=== PATIENT | male | born 1955 | race African-American/Black ===

== ENCOUNTER 2022-02-13 10:22 | Inpatient (IN) | payer OTHER ==
[2022-02-13] MEDS ORDERED: chlordiazePOXIDE HCL 25 MG CAPSULE PO PRN (11:14)
[2022-02-13] MEDS ORDERED: LOPERAMIDE HCL 2 MG CAPSULE PO PRN (11:15)
[2022-02-13] MEDS ORDERED: ACETAMINOPHEN 325 MG TABLET (FP) PO PRN ×2 (11:15)
[2022-02-13] MEDS ORDERED: METHOCARBAMOL 500 MG TABLET PO PRN (11:15)
[2022-02-13] MEDS ORDERED: MAGNESIUM HYDROX 2400MG/30ML ORAL SUSPENSION 30 ML CUP PO PRN (11:15)
[2022-02-13] MEDS ORDERED: MENTHOL/PHENOL 1 EACH UD MM PRN (11:15)
[2022-02-13] MEDS ORDERED: BISMUTH SUBSALICYLATE 524 MG/30 ML PO PRN (11:15)
[2022-02-13] MEDS ORDERED: NICOTINE 10 MG CARTRIDGE (INHALER) IH PRN (11:15)
[2022-02-13] MEDS ORDERED: IBUPROFEN 400 MG TABLET (FP) PO PRN (11:15)
[2022-02-13] MEDS ORDERED: ONDANSETRON *ODT* 4 MG TABLET SL PRN (11:15)
[2022-02-13] MEDS ORDERED: MAG HYDROX/AL HYDROX/SIMETH 30 ML UNIT-DOSE CUP PO PRN (11:15)
[2022-02-13] MEDS ORDERED: MAGNESIUM CITRATE 300 ML BOTTLE PO PRN (11:15)
[2022-02-13 11:38] VITALS: BMI 28.5
[2022-02-13] MEDS: hydrOXYzine PAMOATE 25 MG CAPSULE (FP) PO SCH ×3 (13:35→22:33)
[2022-02-13] MEDS: chlordiazePOXIDE HCL 25 MG CAPSULE PO SCH ×2 (17:50→22:33)
[2022-02-13] MEDS: MELATONIN 5 MG TABLETS PO SCH (22:34)
[2022-02-13] MEDS: THIAMINE HCL 100 MG TABLET (FP) PO SCH (22:35)
[2022-02-14] MEDS: chlordiazePOXIDE HCL 25 MG CAPSULE PO SCH ×4 (05:22→22:35)
[2022-02-14] MEDS: hydrOXYzine PAMOATE 25 MG CAPSULE (FP) PO SCH ×5 (05:22→22:35)
[2022-02-14] MEDS: PRENATAL VITAMINS W/ FOLIC ACID TABLET (FP) PO SCH (10:22)
[2022-02-14] MEDS ORDERED: guaiFENesin 200 MG/10 ML 10 ML UNIT-DOSE CUPS PO PRN (10:24)
[2022-02-14 10:28] LABS: HEMATOCRIT 41.8 % (35.4-49); HEMOGLOBIN 14.2 GM/dL (11.7-16.9); MCH 29.2 pg (25.7-33.7); MEAN PLT VOLUME 7.9 fl (7.5-11.1); PLATELET COUNT 300 10^3/uL (134-434); RBC 4.86 M/mm3 (4.00-5.60); RDW 14.2 % (11.9-15.9); WHITE BLOOD COUNT 3.6 K/mm3 (4.0-10.0)
[2022-02-14 10:40] LABS: URINE APPEARANCE CLEAR; URINE BILIRUBIN NEGATIVE (NEGATIVE); URINE COLOR YELLOW; URINE GLUCOSE (UA) NEGATIVE (NEGATIVE); URINE KETONE NEGATIVE (NEGATIVE); URINE LEUK ESTERASE NEGATIVE (NEGATIVE); URINE NITRITE NEGATIVE (NEGATIVE); URINE PROTEIN NEGATIVE (NEGATIVE); URINE UROBILINOGEN 0.2 mg/dL (0.2-1.0)
[2022-02-14 11:26] LABS: ALBUMIN 3.6 g/dl (3.4-5.0); BILIRUBIN,TOTAL 0.3 mg/dL (0.2-1); BLOOD UREA NITROGEN 12.2 mg/dL (7-18); CALCIUM 8.6 mg/dL (8.5-10.1); TOT PROT 6.5 g/dl (6.4-8.2)
[2022-02-14 14:22] LABS: HIV INTERPRETATION NEGATIVE (NEGATIVE)
[2022-02-14] MEDS: THIAMINE HCL 100 MG TABLET (FP) PO SCH (22:35)
[2022-02-14] MEDS: MELATONIN 5 MG TABLETS PO SCH (22:35)
[2022-02-15] MEDS: chlordiazePOXIDE HCL 25 MG CAPSULE PO SCH ×4 (05:18→22:32)
[2022-02-15] MEDS: hydrOXYzine PAMOATE 25 MG CAPSULE (FP) PO SCH ×5 (05:18→22:32)
[2022-02-15 06:09] LABS: SARS-CoV-2 NAA Not Detected (Not Detected)
[2022-02-15] MEDS: PRENATAL VITAMINS W/ FOLIC ACID TABLET (FP) PO SCH (10:44)
[2022-02-15] MEDS: THIAMINE HCL 100 MG TABLET (FP) PO SCH (22:33)
[2022-02-15] MEDS: MELATONIN 5 MG TABLETS PO SCH (22:33)
[2022-02-16] MEDS ORDERED: chlordiazePOXIDE HCL 10 MG CAPSULE PO PRN
[2022-02-16] MEDS ORDERED: chlordiazePOXIDE HCL 10 MG CAPSULE PO SCH (05:00)
[2022-02-16] MEDS: hydrOXYzine PAMOATE 25 MG CAPSULE (FP) PO SCH (05:06)
[2022-02-16 06:01] VITALS: TEMP 97.2
[2022-02-16 06:56] VITALS: BP 138/74; PULSE 76
[2022-02-17] MEDS ORDERED: chlordiazePOXIDE HCL 10 MG CAPSULE PO SCH (05:00)
[2022-02-18] MEDS ORDERED: chlordiazePOXIDE HCL 10 MG CAPSULE PO ONE (05:00)
== END 2022-02-16 06:55 | disposition home or self-care (01) | DRG 897 ==
LOC: YASAS 10:22 → Y3N 12:04
PROVIDERS: ADMIT Allergy & Immunology; ATTEND Allergy & Immunology
PROC: HZ2ZZZZ Detoxification Services for Substance Abuse Treatment (ICD-10-PCS; principal; 2022-02-13)
DX: F10.230 Alcohol dependence with withdrawal, uncomplicated (principal); F14.20 Cocaine dependence, uncomplicated; Z86.19 Personal history of other infectious and parasitic diseases
CPT/HCPCS: 36415; 71046-TC-FY; 80053; 81003; 85027; 86593; 86780; 87389; 87811; 93005; 93010; C9803-CS; U0003; U0005